=== PATIENT | male | born 1990 | race Two or more races ===

== ENCOUNTER 2022-04-26 15:49 | Inpatient (IN) ==
[2022-04-26] MEDS ORDERED: SODIUM CHLORIDE 0.9% 1000ML 1,000 ML IV ONE (16:32)
[2022-04-26] MEDS ORDERED: MoRPHine SULFATE 4 MG/ML 1 ML CARP\\VIAL IV STA ×2 (16:32→18:54)
--- NOTE | 2022-04-26 16:50 | Emergency Department Note ---
ED Provider Note History of Present Illness Chief Complaint: Skin Problem Stated Complaint: TAILBONE FRACTURE, LIKELY ABSCESS Time Seen by Provider: 04/26/22 16:07 This is a 31-year-old male who is referred to the emergency department by a local urgent care for tailbone and right buttock pain and possible infection. He slipped and fell on ice while at work 2 weeks ago (works for a local [employer] company) and landed directly on his buttocks. He did not think much of the injury at that time and continued to work. About 3 to 4 days ago he noticed some pain and aching in his tailbone and right buttock region and this has progressed relatively quickly over the past few days. Last night he felt like he might have a fever and had chills but did not check his temperature. He took some ibuprofen and Tylenol for his symptoms yesterday and today. He went to see a local urgent care today who performed an x-ray of his coccyx and was told he had a fracture of his tailbone and he was referred to the emergency department because they were concerned he had an infection on his right buttock. Patient denies any chest pain, shortness of breath, cough, sore throat, congestion, nausea, vomiting, pain with bowel movement, drainage from the area of swelling and pain in his buttock, diarrhea, constipation, numbness tingling or weakness in his lower extremities, loss of bowel or bladder function, dysuria, testicular pain, scrotal swelling. He does not have any significant thoracic or lumbar back pain. No history of MRSA. History of asthma, otherwise healthy. No history of Crohn's or ulcerative colitis. No history of perianal or rectal abscesses. Home Medications Medication Instructions Recorded Confirmed Type loratadine 10 mg tablet 10 mg PO DAILY 07/03/18 04/26/22 History fluticasone 250 mcg-salmeterol 50 1 inh inhalation BID #60 ea 11/28/21 04/26/22 Rx mcg/dose blistr powdr for inhalation (Advair Diskus) albuterol sulfate 90 mcg/actuation 2 inh inhalation QID PRN Shortness 04/26/22 04/26/22 History aerosol inhaler (Ventolin HFA) Of Breath Or Wheezing montelukast 10 mg tablet 10 mg PO DAILY 04/26/22 04/26/22 History triamcinolone acetonide 0.1 % 1 applic topical BID PRN Skin 04/26/22 04/26/22 History topical ointment Irritation Allergies Allergy/AdvReac Type Severity Reaction Status Date / Time animal dander Allergy Intermediate CONGESTION Verified 04/26/22 17:06 house dust mite Allergy Intermediate CONGESTION Verified 04/26/22 17:06 Penicillins Allergy Unknown Unknown Verified 04/26/22 17:06 Past Med/Surg History Medical History Allergic rhinitis Asthma Cough Eustachian tube dysfunction Herpes simplex type 1 infection Jaw pain Surgical History No history of previous surgery Family History Aunt Breast cancer Grandfather (Maternal) Myocardial infarction Grandfather (Paternal) Myocardial infarction Grandmother (Maternal) Asthma Allergic rhinitis Denies family history of Ovarian cancer Prostate cancer Colorectal cancer Social History Smoking Status: Current some day smoker Tobacco Type: Cigarettes Age Started Using Tobacco: 18; Age Quit Using Tobacco: 28; Second Hand Exposure: No; Do You Dip or Chew Tobacco: No; Tobacco Cessation Education Requested by Patient: No Hx Alcohol Use: Yes Alcohol type: beer, wine and hard liquor Alcohol Intake Frequency: 4 or More x per/Week Alcohol Intake Frequency Comment: 2 drinks daily Hx Substance Use: No Preferred Language: Hebrew Communication Ability: Effective Visual Impairment: No Limitations Hearing Ability: Normal Fibre Optic Cable Splicer Required: No marital status: Single Current Living Situation: Significant Other current occupational status: employed 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 How many Children do You have: 0 Other Information That Helps Us Care for You: No Feels Safe at Home: Yes Safety Concerns: Feels Safe At This Time Childhood Exposure to Second-Hand Smoke: No Dental Care, Regularly: No Physical Activity Frequency: Daily Seatbelt Use: always Sunscreen Use: No Assistive Devices: None Physical Exam Vital Signs Vital Signs - 24 hr 04/26/22 15:50 Temperature 36.6 C Temperature Source Temporal Artery Scan Pulse Rate 81 Respiratory Rate 20 Respiratory Effort / Characteristics Non-Labored Spontaneous Respiratory Depth Normal Blood Pressure 162/100 H Blood Pressure Mean 120 Pulse Oximetry 96 Oxygen Delivery Method Room Air Sepsis Recent Fever Within 48 Hours Yes Sepsis New/Unexplained Change in Mental Status No Sepsis Action Taken by Nursing No Action Required CONSTITUTIONAL: Well developed, well nourished, appears to be uncomfortable especially when putting pressure on the right buttock, changes position carefully to avoid pressure on the right buttock EYES: conjunctivae normal, extraocular muscles intact. No scleral icterus ENMT: External ears normal. Nose with normal external appearance, no congestion. Oral mucous membranes moist. Oropharynx normal. NECK: Full active range of motion. LYMPHATIC: No cervical or inguinal adenopathy RESPIRATORY: Breathing unlabored and symmetric. Lungs clear to auscultation bilaterally. No wheeze, rales, or rhonchi. CARDIOVASCULAR: Regular rate and rhythm. No murmurs, rubs, or gallops. ABDOMEN: Normal bowel sounds. Soft, nontender, no peritonitis. No masses. GENITOURINARY: RN adult basic studies teacher present. Normal scrotum with no swelling or skin color changes. No testicular tenderness. No tenderness in the perineal region. RECTAL: There is a large area of erythema, induration, and likely fluctuance located about the majority of the right buttock extending from the right perianal region. This is extremely tender to palpation. There is no obvious pointing. Erythema does not seem to extend onto the perianal region. Rectal exam is not significantly tender, there is no induration or tenderness within the rectal wall. MUSCULOSKELETAL: Moves all extremities at all joints without pain or difficulty. Back exam: There is no thoracic, or lumbar midline tenderness. There is midline coccyx tenderness. No evidence of pilonidal cyst or abscess SKIN: [place], warm, dry. NEUROLOGIC: Awake, alert, oriented. Gaze is conjugate. Face symmetric, speech normal. Moves head and all four extremities spontaneously. Sensation and strength grossly intact. PSYCHIATRIC: Appropriate. Normal affect Course Administered Medications Fluticasone/Vilanterol (Fluticasone/Vilanterol 100/25mcg 14 Puffs/Inhaler) 1 puffs INH HS REBECCA Stop: 05/26/22 22:59 Last Admin: 04/26/22 23:54 Dose: 1 puffs Documented By: EKF Hydromorphone HCl (Hydromorphone Inj 1 Mg/Ml Syringe) 1 mg IV Q4H PRN PRN Reason: Pain (4,5,6+) Stop: 05/10/22 21:18 Last Admin: 04/27/22 02:42 Dose: 1 mg Documented By: Admin: 04/26/22 22:57 Dose: 1 mg Documented By: EKF Cefepime HCl 2,000 mg/ Syringe 20 mls @ 5 mls/min IV Q8H [facility]; Protocol Stop: 05/04/22 03:59 Last Admin: 04/27/22 13:39 Dose: 5 mls/min Documented By: Admin: 04/27/22 04:25 Dose: 5 mls/min Documented By: EKF Metronidazole (Flagyl) 500 mg in 100 mls @ 100 mls/hr IV Q8H [facility] Stop: 05/04/22 03:59 Last Infusion: 04/27/22 14:56 Dose: 0 mls/hr Documented By: Admin: 04/27/22 13:39 Dose: 100 mls/hr Documented By: Infusion: 04/27/22 05:25 Dose: 0 mls/hr Documented By: Admin: 04/27/22 04:25 Dose: 100 mls/hr Documented By: EKF Acetaminophen (Ofirmev) 1,000 mg in 100 mls @ 400 mls/hr IV Q8H PRN PRN Reason: pain (1,2,3) or fever Stop: 04/29/22 21:18 Last Infusion: 04/27/22 06:35 Dose: 0 mls/hr Documented By: Admin: 04/27/22 06:16 Dose: 400 mls/hr Documented By: EKF Montelukast Sodium (Montelukast Sodium 10 Mg Tablet) 10 mg PO HS [facility] Stop: 05/26/22 23:49 Last Admin: 04/27/22 00:28 Dose: 10 mg Documented By: EKF Discontinued Medications Sodium Chloride (Nss 1000ml) 1,000 mls @ 999 mls/hr IV .Q1H1M ONE Stop: 04/26/22 17:32 Last Infusion: 04/26/22 18:08 Dose: 0 mls/hr Documented By: Admin: 04/26/22 16:42 Dose: 999 mls/hr Documented By: RICO Vancomycin HCl 1,750 mg/ (Sodium Chloride) 535 mls @ 200 mls/hr IV NOW ONE Stop: 04/26/22 21:18 Last Admin: 04/26/22 21:05 Dose: 200 mls/hr Documented By: MED Cefepime HCl (Maxipime) 2,000 mg in 20 mls @ 5 mls/min IV NOW STA; Protocol Stop: 04/26/22 18:41 Last Admin: 04/26/22 18:55 Dose: 5 mls/min Documented By: MED Metronidazole (Flagyl) 500 mg in 100 mls @ 100 mls/hr IV NOW STA Stop: 04/26/22 19:37 Last Infusion: 04/26/22 21:06 Dose: 0 mls/hr Documented By: preschool head teacher: 04/26/22 20:06 Dose: 100 mls/hr Documented By: MED Vancomycin HCl 1,250 mg/ (Sodium Chloride) 275 mls @ 200 mls/hr IV Q12H [facility]; Protocol Stop: 05/04/22 03:59 Last Infusion: 04/27/22 06:14 Dose: 0 mls/hr Documented By: Admin: 04/27/22 04:24 Dose: 200 mls/hr Documented By: EKF Ioversol (Optiray 350 100ml) 86 ml IV ONCE ONE Stop: 04/26/22 17:49 Last Admin: 04/26/22 17:49 Dose: 86 ml Documented By: P Morphine Sulfate (Morphine Sulfate 4 Mg/Ml 1 Ml Carp\Vial) 4 mg IV NOW STA Stop: 04/26/22 16:33 Last Admin: 04/26/22 16:43 Dose: 4 mg Documented By: [facility] Morphine Sulfate (Morphine Sulfate 4 Mg/Ml 1 Ml Carp\Vial) 4 mg IV NOW STA Stop: 04/26/22 18:55 Last Admin: 04/26/22 19:07 Dose: 4 mg Documented By: MED Medical Decision Making Differential Diagnosis Coccyx fracture, perianal abscess, perirectal abscess, perianal cellulitis, Debbi's gangrene, Crohn's, ulcerative colitis, MRSA, among other pathology Medical Records Attestation: I reviewed the patient's medical records. (Reviewed [facility] notes) Laboratory Data 04/26/22 16:46 04/26/22 16:46 Lab Results 04/26/22 04/26/22 04/26/22 Range/Units 14:10 16:46 16:46 WBC 14.57 H (4.8-10.8) K/ul RBC 4.93 (4.70-6.10) M/uL Hgb 16.0 (14.0-18.0) g/dl Hct 45.2 (42.0-52.0) % MCV 91.7 (80.0-100.0) fL MCH 32.5 (25.0-34.0) pg MCHC 35.4 (32.0-36.0) g/dL RDW Std Deviation 37.1 (36.4-46.3) fL RDW Coeff of Magdalene 11.0 L (11.5-14.5) % Plt Count 205 (130-400) K/uL MPV 9.6 (9.4-12.4) fL Immature Gran % (Auto) 0.5 % Neut % (Auto) 76.7 % Lymph % (Auto) 12.4 % Banks % (Auto) 9.5 % Eos % (Auto) 0.7 % Baso % (Auto) 0.2 % Neut # (Auto) 11.17 H (1.40-6.50) K/uL Lymph # (Auto) 1.80 (1.2-3.4) K/uL Banks # (Auto) 1.39 H (0.11-0.59) K/uL Eos # (Auto) 0.10 (0-0.50) K/uL Baso # (Auto) 0.03 (0-0.2) K/uL Immature Gran # (Auto) 0.08 (0.01-0.20) K/uL Sodium 136 (136-145) mmol/L Potassium 4.1 (3.5-5.1) mmol/L Chloride 103 (98-107) mmol/L Carbon Dioxide 26 (21-32) mmol/L Anion Gap 7 (3-11) BUN 12 (6-23) mg/dl Creatinine 0.98 (0.6-1.4) mg/dl Est Cr Clr Drug Dosing 124.6 ml/min Est GFR ( Amer) 119.4 ml/min Est GFR (Non-Af Amer) 103.0 ml/min BUN/Creatinine Ratio 12.2 (10-20) Glucose 99 (70-99(Fasting)) mg/dl Lactate (0.4-2.0) mmol/L Calcium 9.1 (8.5-10.1) mg/dl Total Bilirubin 0.7 (0.2-1.0) mg/dl AST 22 (13-39) U/L ALT 39 (7-52) U/L Alkaline Phosphatase 41 (34-104) U/L Total Protein 7.8 (6.0-8.3) gm/dl Albumin 4.7 (3.4-5.0) gm/dl Globulin 3.1 (2.5-4.0) gm/dl Albumin/Globulin Ratio 1.5 (0.9-2) SARS-CoV-2, RNA, NAAT NEGATIVE (NEGATIVE) 04/26/22 Range/Units 16:46 WBC (4.8-10.8) K/ul RBC (4.70-6.10) M/uL Hgb (14.0-18.0) g/dl Hct (42.0-52.0) % MCV (80.0-100.0) fL MCH (25.0-34.0) pg MCHC (32.0-36.0) g/dL RDW Std Deviation (36.4-46.3) fL RDW Coeff of Magdalene (11.5-14.5) % Plt Count (130-400) K/uL MPV (9.4-12.4) fL Immature Gran % (Auto) % Neut % (Auto) % Lymph % (Auto) % Banks % (Auto) % Eos % (Auto) % Baso % (Auto) % Neut # (Auto) (1.40-6.50) K/uL Lymph # (Auto) (1.2-3.4) K/uL Banks # (Auto) (0.11-0.59) K/uL Eos # (Auto) (0-0.50) K/uL Baso # (Auto) (0-0.2) K/uL Immature Gran # (Auto) (0.01-0.20) K/uL Sodium (136-145) mmol/L Potassium (3.5-5.1) mmol/L Chloride (98-107) mmol/L Carbon Dioxide (21-32) mmol/L Anion Gap (3-11) BUN (6-23) mg/dl Creatinine (0.6-1.4) mg/dl Est Cr Clr Drug Dosing ml/min Est GFR ( Amer) ml/min Est GFR (Non-Af Amer) ml/min BUN/Creatinine Ratio (10-20) Glucose (70-99(Fasting)) mg/dl Lactate 1.4 (0.4-2.0) mmol/L Calcium (8.5-10.1) mg/dl Total Bilirubin (0.2-1.0) mg/dl AST (13-39) U/L ALT (7-52) U/L Alkaline Phosphatase (34-104) U/L Total Protein (6.0-8.3) gm/dl Albumin (3.4-5.0) gm/dl Globulin (2.5-4.0) gm/dl Albumin/Globulin Ratio (0.9-2) SARS-CoV-2, RNA, NAAT (NEGATIVE) Imaging Data Radiologist's Impression: Abdomen/Pelvis CT 04/26/22 16:[address] WITH IV CONTRAST CT DOSE: 482.75 mGy.cm HISTORY: Acute pain of the right buttock with possible abscess large cellulit is/abscess R buttock, coccyx fx TECHNIQUE: Multiaxial CT images of the abdomen and pelvis were performed following the IV administration of 86 cc of Optiray, A dose lowering technique was utilized adhering to the principles of ALARA. COMPARISON STUDY: None. FINDINGS: The lung bases are clear. Hepatomegaly with hepatic steatosis. The spleen, gallbladder, pancreas, kidneys, and adrenal glands are within normal limits. No bowel wall thickening or obstruction. Urinary bladder wall thickening with partial distention. Noninflamed appendix with distal subcentimeter appendicolith. Unremarkable osseous structures. Posterior perianal fistula originates from the 7:00 position with cellulitis extending into the adjacent right medial gluteal fold. Ill-defined 3.0 cm hypodensity of the right gluteal tissues on image 457. Moderate skin thickening. No supralevator extension. IMPRESSION: 1. 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 No supralevator extension. 2. No bowel obstruction or bowel wall thickening. 3. Noninflamed appendix with subcentimeter appendicolith. 4. Hepatomegaly with hepatic steatosis. ACT 112: Negative or not required by law. The above report was generated using voice recognition software. It may contain grammatical, syntax or spelling errors. Electronically signed by: Chester Chapa M.D. 04/26/2022 6:08 PM MDM Narrative 31-year-old male presents with 3 to 4 days of progressive right buttock pain, erythema, and swelling, was referred to the emergency department by local urgent care for possible abscess/infection. This is also in context of the patient slipping and falling 2 weeks ago at work for a local [employer] company and landing directly on his buttock. He was told he has a tailbone fracture from urgent care today. On his exam, he does appear to be somewhat uncomfortable especially when any pressure is put on the right buttock. There is tenderness in the coccyx region. He appears to have an extensive cellulitis, possibly abscess about the right perianal region. His rectal exam is relatively nontender and I am not appreciating any evidence of obvious perirectal abscess. IV was established, labs were obtained including lactate. IV fluids were administered. Morphine for pain control. Labs show a leukocytosis of 14.57. Lactate is normal. No additional abn ormalities were identified. Due to the extent of the infection on his buttock with the possible coccyx fracture, CT of the abdomen and pelvis was obtained demonstrating cellulitis, posterior perianal fistula with likely intersphincteric involvement, and a developing 3 cm phlegmon/abscess. Patient required an additional dose of morphine for pain control I discussed the case with Dr. Pang (general surgery on-call) who made specific recommendations and requested the patient be placed on antibiotics and admitted for IV antibiotics with general surgery consult to follow. He is unsure if this will require incision and drainage in the OR. I discussed antibiotic options with clinical pharmacist Felix given his mild allergy to penicillin. We decided to treat the patient with vancomycin, cefe pime, and Flagyl. First dose administered in the emergency department. Case discussed with Dr. Nye (hospitalist on-call) who will admit the patient. Impression Perianal cellulitis, Phlegmon Discharge Plan Visit Data Chief Complaint: Skin Problem Stated Complaint: TAILBONE FRACTURE, LIKELY ABSCESS ED Provider: Roger Zhang ED Midlevel Provider: Baljit Ba Discharge Problem: Perianal cellulitis, Phlegmon Patient Disposition: Admitted As Inpatient Discharge Instructions Interventions: ED Discharge Assessment Last Done: 04/26/22 22:19
[2022-04-26 17:15] LABS: Hematocrit (blood only) 45.2 % (42.0-52.0); Mean Corpuscular Hemoglobin 32.5 pg (25.0-34.0); Mean Corpuscular Hgb Conc 35.4 g/dL (32.0-36.0); Mean Corpuscular Volume 91.7 fL (80.0-100.0); Mean Platelet Volume 9.6 fL (9.4-12.4); Platelet Count 205 K/uL (130-400); RDW Standard Deviation 37.1 fL (36.4-46.3); Red Blood Count 4.93 M/uL (4.70-6.10); White Blood Count 14.57 K/ul (4.8-10.8)
[2022-04-26 17:16] LABS: Basophils # (auto) 0.03 K/uL (0-0.2); Basophils % (auto) 0.2 %; Eosinophils % (auto) 0.7 %; Immature Granulocytes # (auto) 0.08 K/uL (0.01-0.20); Immature Granulocytes % (auto) 0.5 %; Lymphocytes % (auto) 12.4 %; Monocytes # (auto) 1.39 K/uL (0.11-0.59); Monocytes % (auto) 9.5 %; Neutrophils # (auto) 11.17 K/uL (1.40-6.50); Neutrophils % (auto) 76.7 %
[2022-04-26 17:28] LABS: Albumin Globulin Ratio 1.5 (0.9-2); Albumin Level 4.7 gm/dl (3.4-5.0); BUN Creatinine Ratio 12.2 (10-20); Bilirubin,Total 0.7 mg/dl (0.2-1.0); Calcium 9.1 mg/dl (8.5-10.1); Creatinine Clr Calc Pharmacy 124.6 ml/min; Est GFR (African American) 119.4 ml/min; Globulin 3.1 gm/dl (2.5-4.0); Potassium 4.1 mmol/L (3.5-5.1); Total Protein 7.8 gm/dl (6.0-8.3)
[2022-04-26] MEDS ORDERED: OPTIRAY 350 100ml IV ONE (17:48)
--- NOTE | 2022-04-26 18:11 | CT Scan Report ---
ABDOMEN AND PELVIS CT WITH IV CONTRAST CT DOSE: 482.75 mGy.cm HISTORY: Acute pain of the right buttock with possible abscess large cellulitis/abscess R buttock, c occyx fx TECHNIQUE: Multiaxial CT images of the abdomen and pelvis were performed following the IV administrat ion of 86 cc of Optiray, A dose lowering technique was utilized adhering to the principles of ALARA. COMPARISON STUDY: None. FINDINGS: The lung bases are clear. Hepatomegaly with hepatic steatosis. The spleen, gallbladder, cano creas, kidneys, and adrenal glands are within normal limits. No bowel wall thickening or obstruction. Urinary bladder wall thickening with partial distention. Noninflamed appendix with distal subcentime ter appendicolith. Unremarkable osseous structures. Posterior perianal fistula originates from the 7: 00 position with cellulitis extending into the adjacent right medial gluteal fold. Ill-defined 3.0 cm hypodensity of the right gluteal tissues on image 457. Moderate skin thickening. No supralevator ext ension. IMPRESSION: 1. 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 No supralevator extension. 2. No bowel obstruction or bowel wall thickening. 3. Noninflamed appendix with subcentimeter appendicolith. 4. Hepatomegaly with hepatic steatosis. ACT 112: Negative or not required by law. The above report was generated using voice recognition software. It may contain grammatical, syntax o r spelling errors. Electronically signed by: Chester Chapa M.D. 04/26/2022 6:08 PM
[2022-04-26] MEDS ORDERED: metroNIDAZOLE 500 MG/100 ML BAG IV STA (18:38)
[2022-04-26] MEDS ORDERED: CEFEPIME 2,000 MG/20 ML VIAL IV STA (18:38)
[2022-04-26] MEDS ORDERED: VANCOMYCIN CONSULT ACTIVE PRN (18:38)
[2022-04-26] MEDS ORDERED: VANCOMYCIN HCL 1,750 MG in SODIUM CHLORIDE 0.9% 500 ML IV ONE (18:38)
--- NOTE | 2022-04-26 20:49 | History & Physical Report ---
Patient seen and examined. I agree with the history and physical and the plan as outlined in the PA note. 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 No supralevator extension." -ED spoke with General Surgery who recommended medicine admission with IV antibiotics for now, no urgent plans for the OR -General surgery consulted, they will follow -S/P one dose of Vancomycin for MRSA coverage, and Cefepime with Flagyl for aerobic and anaerobic coverage, will continue this regimen for now -Ordered blood cultures on admission, unfortunately the first doses of abx were given prior to admission, continue to follow -Pain control with IV tylenol prn pain (1,2,3 or fever) and 1 mg IV dilaudid q4h prn pain (4,5,6+) -BL SCD's for DVT PPX -AM CBC, CMP, Mag, PT/INR (2) Mild persistent asthma: Plan: -Stable on RA, lungs are CTA -Continue advair and albuterol -Incentive spirometry ordered Plan The patient was discussed with Dr. Saez at the time of the admission History of Present Illness Chief Complaint: Tailbone pain, concern for fracture and/or abscess Primary Care Provider: DO Grzegorz Burk is a 31 year old male with a PMH significant for Allergic rhinitis, Asthma, and Herpes simplex type 1 infection who presented to the [facility] ED from an Urgent Care clinic today (04/26/22) due to concerns for tailbone fracture and possible abscess of the buttocks. In the ED the patient was found to be afebrile, hypertensive at 162/100, and stable on RA. Labs were remarkable for a leukocytosis of 14 with left shift of 11, stable Hgb and platelets, stable cr, electrolytes, and LFT's, and Covid negative. CT of the abd/pelvis with IV contrast was read as" 1. 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 No supralevator extension. 2. No bowel obstruction or bowel wall thickening. 3. Noninflamed appendix with subcentimeter appendicolith. 4. Hepatomegaly with hepatic steatosis.". The patient was initially given Cefepime, flagyl, and Vancomycin along with 1L NSS and 8 mg total IV morphine. The ED staff spoke with General Surgery who recommended medicine admission with IV antibiotics at this time. At the time of the exam the patient was lying in bed in no acute distress. 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 He was carrying a bad, slipped on ice, and landed on his buttocks holding the salt bag. He rested and and the pain initially improved. Over last week he started to develop swelling and increased pain of the right buttocks. He used tylenol and ibuprofen without relief. He went to an urgent care clinic today for evaluation where they obtain an xray of his pelvis. They told him he may have fractured his tailbone and they were concerned for possible abscess and sent him to the ED. His pain is currently an 8/10 as the morphine he received in the ED has worn off. He had chills and sweats last night but did not take his temperature. He denies chest pain, SOB, abd pain, nausea, vomiting, changes in bowel habits, melena, bloody stool, dysuria, hematuria. Please refer to Dr. Saez's attestation for any changes to the treatment plan. Allergies Allergy/AdvReac Type Severity Reaction Status Date / Time animal dander Allergy Intermediate CONGESTION Verified 04/26/22 17:06 house dust mite Allergy Intermediate CONGESTION Verified 04/26/22 17:06 Penicillins Allergy Unknown Unknown Verified 04/26/22 17:06 Home Medications Medication Instructions Recorded Confirmed Type loratadine 10 mg tablet 10 mg PO DAILY 07/03/18 04/26/22 History fluticasone 250 mcg-salmeterol 50 1 inh inhalation BID #60 ea 11/28/21 04/26/22 Rx mcg/dose blistr powdr for inhalation (Advair Diskus) albuterol sulfate 90 mcg/actuation 2 inh inhalation QID PRN Shortness 04/26/22 04/26/22 History aerosol inhaler (Ventolin HFA) Of Breath Or Wheezing montelukast 10 mg tablet 10 mg PO DAILY 04/26/22 04/26/22 History triamcinolone acetonide 0.1 % 1 applic topical BID PRN Skin 04/26/22 04/26/22 History topical ointment Irritation Past Med/Surg History Medical History Allergic rhinitis Asthma Cough Eustachian tube dysfunction Herpes simplex type 1 infection Jaw pain Surgical History No history of previous surgery Family History Aunt Breast cancer Grandfather (Maternal) Myocardial infarction Grandfather (Paternal) Myocardial infarction Grandmother (Maternal) Asthma Allergic rhinitis Denies family history of Ovarian cancer Prostate cancer Colorectal cancer Social History Smoking Status: Current some day smoker Tobacco Type: Cigarettes Age Started Using Tobacco: 18; Age Quit Using Tobacco: 28; Second Hand Exposure: No; Hx Alcohol Use: Yes Alcohol type: beer, wine and hard liquor Alcohol Intake Frequency: 4 or More x per/Week Alcohol Intake Frequency Comment: 2 drinks daily Hx Substance Use: No Preferred Language: [place] Island[place] Communication Ability: Effective Visual Impairment: No Limitations Hearing Ability: Normal marital status: Single Current Living Situation: Significant Other current occupational status: employed 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 Physical Exam Physical Exam: Physical Exam: General: In no acute distress, stated age, well-nourished, non-toxic appearing HEENT: Normocephalic, atraumatic, no scleral icterus, pupils around round, symmetrical, and reactive to light, moist mucus membranes, trachea midline, no thyromegaly Chest/Pulm: No respiratory distress, symmetrical chest expansion, clear breath sounds throughout Cardiac: RRR, no murmurs noted Abdomen: Negative for ascites and bruising, normoactive bowel sounds, soft, non-tender to palpation throughout Musculoskeletal: Symmetrical and without signs of acute trauma, upper and lower extremities with full ROM, no atrophy, spasticity, or flaccidity Extremities: Radial, dorsalis pedis, and posterior tibial pulses are intact and symmetrical, no edema noted in the BL LE's Skin: Patient with swelling and erythema of the right buttocks without signs of drainage, the area of erythema is firm and very tender to palpation Neuro: Alert and oriented to person, place, month, year, and president, no focal defects, no tremors noted Psych: No acute distress, calm and cooperative during the exam Results & Data Results & Data ([facility]) Vital Signs (Past 12 Hours) Vital Signs Temp Pulse Resp BP Pulse Ox O2 Del Method 04/26/22 15:50 36.6 C 81 20 162/100 H 96 Room Air Laboratory Results Abnormal lab results 04/26/22 Range/Units 16:46 WBC 14.57 H (4.8-10.8) K/ul RDW Coeff of Magdalene 11.0 L (11.5-14.5) % Neut # (Auto) 11.17 H (1.40-6.50) K/uL [place] # (Auto) 1.39 H (0.11-0.59) K/uL Diagnostic Findings Abdomen/Pelvis CT 04/26/22 16:[address] WITH IV CONTRAST CT DOSE: 482.75 mGy.cm HISTORY: Acute pain of the right buttock with possible abscess large cellulitis/abscess R buttock, coccyx fx TECHNIQUE: Multiaxial CT images of the abdomen and pelvis were performed following the IV administration of 86 cc of Optiray, A dose lowering technique was utilized adhering to the principles of ALARA. COMPARISON STUDY: None. FINDINGS: The lung bases are clear. Hepatomegaly with hepatic steatosis. The spleen, gallbladder, pancreas, kidneys, and adrenal glands are within normal limits. No bowel wall thickening or obstruction. Urinary bladder wall thickening with partial distention. Noninflamed appendix with distal subcentimeter appendicolith. Unremarkable osseous structures. Posterior perianal fistula originates from the 7:00 position with cellulitis extending into the adjacent right medial gluteal fold. Ill-defined 3.0 cm hypodensity of the right gluteal tissues on image 457. Moderate skin thickening. No supralevator extension. IMPRESSION: 1. 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 No supralevator extension. 2. No bowel obstruction or bowel wall thickening. 3. Noninflamed appendix with subcentimeter appendicolith. 4. Hepatomegaly with hepatic steatosis. ACT 112: Negative or not required by law. The above report was generated using voice recognition software. It may contain grammatical, syntax or spelling errors. Electronically signed by: Chester Chapa M.D. 04/26/2022 6:08 PM Code Status & VTE Plan Code Status Full code VTE Prophylaxis Plan VTE Prophylaxis will be ordered: Yes PG Care Time/CCT Total # of Minutes Spent Total Time Spent with Patient: Total time spent is greater than 50% in coordination of care (as documented) at patient's floor/unit and/or counseling patient: [place] [address] INT INP/OBS CARE 2/55MIN Patient Type New History Comprehensive Exam Comprehensive Medical Decision Making Moderate Complexity Diagnoses Perianal abscess K61.0 Mild persistent asthma J45.30
[2022-04-26] MEDS ORDERED: ALBUTEROL HFA 8 GM INHALER INH PRN (22:53)
[2022-04-26] MEDS: HYDROmorphone INJ 1 MG/ML SYRINGE IV PRN (22:57)
[2022-04-26] MEDS: FLUTICASONE/VILANTEROL 100/25MCG 14 PUFFS/INHALER INH SCH (23:54)
[2022-04-27] MEDS: MONTELUKAST SODIUM 10 MG TABLET PO SCH ×2 (00:28→20:03)
[2022-04-27] MEDS: HYDROmorphone INJ 1 MG/ML SYRINGE IV PRN (02:42)
[2022-04-27] MEDS ORDERED: VANCOMYCIN HCL 1,250 MG in SODIUM CHLORIDE 0.9% 250 ML IV SCH (04:00)
[2022-04-27] MEDS: CEFEPIME 2,000 MG in SYRINGE 0 ML IV SCH ×3 (04:25→19:35)
[2022-04-27] MEDS: metroNIDAZOLE 500 MG/100 ML BAG IV SCH ×3 (04:25→19:35)
[2022-04-27] MEDS: ACETAMINOPHEN 1,000 MG/100 ML VIAL IV PRN ×2 (06:16→19:35)
[2022-04-27 07:48] LABS: Hematocrit (blood only) 41.3 % (42.0-52.0); Hemoglobin 14.5 g/dl (14.0-18.0); Mean Corpuscular Hemoglobin 32.2 pg (25.0-34.0); Mean Corpuscular Hgb Conc 35.1 g/dL (32.0-36.0); Mean Corpuscular Volume 91.8 fL (80.0-100.0); Mean Platelet Volume 9.5 fL (9.4-12.4); Platelet Count 195 K/uL (130-400); RDW Standard Deviation 37.2 fL (36.4-46.3); White Blood Count 15.58 K/ul (4.8-10.8)
[2022-04-27 08:01] LABS: Albumin Globulin Ratio 1.4 (0.9-2); Albumin Level 3.9 gm/dl (3.4-5.0); BUN Creatinine Ratio 12.4 (10-20); Bilirubin,Total 0.7 mg/dl (0.2-1.0); Calcium 8.6 mg/dl (8.5-10.1); Creatinine Clr Calc Pharmacy 137.2 ml/min; Est GFR (Non-African American) 114.7 ml/min; Globulin 2.8 gm/dl (2.5-4.0); Potassium 3.8 mmol/L (3.5-5.1); Total Protein 6.7 gm/dl (6.0-8.3)
[2022-04-27 08:15] LABS: Prothrombin Time 10.8 Seconds (9.0-12.0)
--- NOTE | 2022-04-27 09:28 | Surgery Consultation ---
Date of Consultation April 27, 2022 Assessment & Plan (1) Perianal cellulitis: (2) Phlegmon: (3) Perianal abscess: Plan 31 year-old male who is about 2 weeks s/p fall onto his buttocks presented to ED wtih 3-4 day history of perirectal pain and swelling. CT scan showing possible perianal fistula with 3.0 cm phlegmon vs developing abscess. Leukocytosis of 15k this am. Spontaneous drainage of abscess last night per patient. Plan: Given exam and CT findings discussed with patient that the phlegmon likely turning into a drainable abscess. Given the cellulitis would recommend incision and drainage to completely removed infection. Will plan to add him to OR today for I&D. NPO now Continue IV antibiotics Continue pain management Dr. Looney has seen and examined pt, agrees with above plan. Discussed need for I&D with patient and obtained informed consent. I reviewed pt's H/P, albs and CT scan with pt, I recommend to do I/D perirectal abscess, D/W benefits, risks and alternatives of the surgery, the risks - infection, bleeding, recurrence, fistula, may need more surgery, scar, pain, pt understood, he agreed with surgery, he signed informed consent, I answered all questions, History of Present Illness Reason for Consultation: Perirectal abscess Requesting Physician: Reed Galloway MD Attending Physician: Reed Galloway MD History of Present Illness Grzegorz is a 31 year-old male who presented to ED last night with rectal/buttock pain and concern for abscess. Had a fall on his buttocks about 2 weeks ago and had some bruising but no swelling. Went to urgent care due to pain for 3-4 days and there was concern for abscess and possible fracture of his coccyx. He has never had this before. No recent fevers or chills. CT scan showing right gluteal cellulitis with possible perianal fistula and 3.0 cm phlegmon/developing abscess. When evaluated this morning he states he is feeling better and pain is a little better as the abscess drained on its own last night. Denies fever or chills. Ate breakfast this am around 8 am. Allergies Allergy/AdvReac Type Severity Reaction Status Date / Time animal dander Allergy Intermediate CONGESTION Verified 04/26/22 17:06 house dust mite Allergy Intermediate CONGESTION Verified 04/26/22 17:06 Penicillins Allergy Unknown Unknown Verified 04/26/22 17:06 Home Medications Medication Instructions Recorded Confirmed Type loratadine 10 mg tablet 10 mg PO DAILY 07/03/18 04/26/22 History fluticasone 250 mcg-salmeterol 50 1 inh inhalation BID #60 ea 11/28/21 04/26/22 Rx mcg/dose blistr powdr for inhalation (Advair Diskus) albuterol sulfate 90 mcg/actuation 2 inh inhalation QID PRN Shortness 04/26/22 04/26/22 History aerosol inhaler (Ventolin HFA) Of Breath Or Wheezing montelukast 10 mg tablet 10 mg PO DAILY 04/26/22 04/26/22 History triamcinolone acetonide 0.1 % 1 applic topical BID PRN Skin 04/26/22 04/26/22 History topical ointment Irritation Patient History Medical History Allergic rhinitis Asthma Cough Eustachian tube dysfunction Herpes simplex type 1 infection Jaw pain Surgical History No history of previous surgery Family History Aunt Breast cancer Grandfather (Maternal) Myocardial infarction Grandfather (Paternal) Myocardial infarction Grandmother (Maternal) Asthma Allergic rhinitis Denies family history of Ovarian cancer Prostate cancer Colorectal cancer Social History Smoking Status: Current some day smoker Tobacco Type: Cigarettes Age Started Using Tobacco: 18; Age Quit Using Tobacco: 28; Second Hand Exposure: No; Do You Dip or Chew Tobacco: No; Tobacco Cessation Education Requested by Patient: No Hx Alcohol Use: Yes Alcohol type: beer, wine and hard liquor Alcohol Intake Frequency: 4 or More x per/Week Alcohol Intake Frequency Comment: 2 drinks daily Hx Substance Use: No Preferred Language: Slovak Communication Ability: Effective Visual Impairment: No Limitations Hearing Ability: Normal Blueberry Grower Required: No marital status: Single Current Living Situation: Significant Other current occupational status: employed 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 How many Children do You have: 0 Other Information That Helps Us Care for You: No Feels Safe at Home: Yes Safety Concerns: Feels Safe At This Time Childhood Exposure to Second-Hand Smoke: No Dental Care, Regularly: No Physical Activity Frequency: Daily Seatbelt Use: always Sunscreen Use: No Assistive Devices: None Physical Exam Constitutional: WD/WN, vitals as above cooperative; no acute distress, not ill appearing, + uncomfortable, not in distress, not diaphoretic and not lethargic looks uncomfortable secondary to pain Neck: normal visual inspection and trachea midline Respiratory: normal respiratory effort; no respiratory distress Gastrointestinal (Abdomen): External rectal exam: There is significant induration of the right buttocks, very tender to palpation. Flutuance is noted, no drainage on exam. Did not perform digital rectal exam given swelling and tenderness. Erythema of right buttocks present. Skin: no rashes, warm and dry Psychiatric: Orientation: alert and oriented x 3 Results & Data ([facility]) Vital Signs (Past 12 Hours) Vital Signs Temp Pulse Pulse Resp BP Pulse Ox O2 Del Method 04/27/22 07:30 36.6 C 83 16 145/88 H 98 Room Air 04/27/22 04:23 36.4 C L 76 16 149/92 H 96 Room Air 04/26/22 22:53 37.1 C 18 146/76 H 98 Room Air 04/26/22 22:19 88 96 Room Air Laboratory Results 04/27/22 04/27/22 04/27/22 Range/Units 07:16 07:16 07:16 WBC 15.58 H (4.8-10.8) K/ul RBC 4.50 L (4.70-6.10) M/uL Hgb 14.5 (14.0-18.0) g/dl Hct 41.3 L (42.0-52.0) % MCV 91.8 (80.0-100.0) fL MCH 32.2 (25.0-34.0) pg MCHC 35.1 (32.0-36.0) g/dL RDW Std Deviation 37.2 (36.4-46.3) fL RDW Coeff of Magdalene 11.0 L (11.5-14.5) % Plt Count 195 (130-400) K/uL MPV 9.5 (9.4-12.4) fL Immature Gran % (Auto) % Neut % (Auto) % Lymph % (Auto) % [place] % (Auto) % Eos % (Auto) % Baso % (Auto) % Neut # (Auto) (1.40-6.50) K/uL Lymph # (Auto) (1.2-3.4) K/uL [place] # (Auto) (0.11-0.59) K/uL Eos # (Auto) (0-0.50) K/uL Baso # (Auto) (0-0.2) K/uL Immature Gran # (Auto) (0.01-0.20) K/uL PT 10.8 (9.0-12.0) Seconds INR 1.0 (0.9-1.1) Sodium 136 (136-145) mmol/L Potassium 3.8 (3.5-5.1) mmol/L Chloride 103 (98-107) mmol/L Carbon Dioxide 28 (21-32) mmol/L Anion Gap 5 (3-11) BUN 11 (6-23) mg/dl Creatinine 0.89 (0.6-1.4) mg/dl Est Cr Clr Drug Dosing 137.2 ml/min Est GFR ( Amer) 133.0 ml/min Est GFR (Non-Af Amer) 114.7 ml/min BUN/Creatinine Ratio 12.4 (10-20) Glucose 103 H (70-99(Fasting)) mg/dl Lactate (0.4-2.0) mmol/L Calcium 8.6 (8.5-10.1) mg/dl Total Bilirubin 0.7 (0.2-1.0) mg/dl AST 13 (13-39) U/L ALT 28 (7-52) U/L Alkaline Phosphatase 35 (34-104) U/L Total Protein 6.7 (6.0-8.3) gm/dl Albumin 3.9 (3.4-5.0) gm/dl Globulin 2.8 (2.5-4.0) gm/dl Albumin/Globulin Ratio 1.4 (0.9-2) SARS-CoV-2, RNA, NAAT (NEGATIVE) 04/26/22 04/26/22 04/26/22 Range/Units 16:46 16:46 16:46 WBC 14.57 H (4.8-10.8) K/ul RBC 4.93 (4.70-6.10) M/uL Hgb 16.0 (14.0-18.0) g/dl Hct 45.2 (42.0-52.0) % MCV 91.7 (80.0-100.0) fL MCH 32.5 (25.0-34.0) pg MCHC 35.4 (32.0-36.0) g/dL RDW Std Deviation 37.1 (36.4-46.3) fL RDW Coeff of Magdalene 11.0 L (11.5-14.5) % Plt Count 205 (130-400) K/uL MPV 9.6 (9.4-12.4) fL Immature Gran % (Auto) 0.5 % Neut % (Auto) 76.7 % Lymph % (Auto) 12.4 % [place] % (Auto) 9.5 % Eos % (Auto) 0.7 % Baso % (Auto) 0.2 % Neut # (Auto) 11.17 H (1.40-6.50) K/uL Lymph # (Auto) 1.80 (1.2-3.4) K/uL [place] # (Auto) 1.39 H (0.11-0.59) K/uL Eos # (Auto) 0.10 (0-0.50) K/uL Baso # (Auto) 0.03 (0-0.2) K/uL Immature Gran # (Auto) 0.08 (0.01-0.20) K/uL PT (9.0-12.0) Seconds INR (0.9-1.1) Sodium 136 (136-145) mmol/L Potassium 4.1 (3.5-5.1) mmol/L Chloride 103 (98-107) mmol/L Carbon Dioxide 26 (21-32) mmol/L Anion Gap 7 (3-11) BUN 12 (6-23) mg/dl Creatinine 0.98 (0.6-1.4) mg/dl Est Cr Clr Drug Dosing 124.6 ml/min Est GFR ( Amer) 119.4 ml/min Est GFR (Non-Af Amer) 103.0 ml/min BUN/Creatinine Ratio 12.2 (10-20) Glucose 99 (70-99(Fasting)) mg/dl Lactate 1.4 (0.4-2.0) mmol/L Calcium 9.1 (8.5-10.1) mg/dl Total Bilirubin 0.7 (0.2-1.0) mg/dl AST 22 (13-39) U/L ALT 39 (7-52) U/L Alkaline Phosphatase 41 (34-104) U/L Total Protein 7.8 (6.0-8.3) gm/dl Albumin 4.7 (3.4-5.0) gm/dl Globulin 3.1 (2.5-4.0) gm/dl Albumin/Globulin Ratio 1.5 (0.9-2) SARS-CoV-2, RNA, NAAT (NEGATIVE) 04/26/22 Range/Units 14:10 WBC (4.8-10.8) K/ul RBC (4.70-6.10) M/uL Hgb (14.0-18.0) g/dl Hct (42.0-52.0) % MCV (80.0-100.0) fL MCH (25.0-34.0) pg MCHC (32.0-36.0) g/dL RDW Std Deviation (36.4-46.3) fL RDW Coeff of Magdalene (11.5-14.5) % Plt Count (130-400) K/uL MPV (9.4-12.4) fL Immature Gran % (Auto) % Neut % (Auto) % Lymph % (Auto) % [place] % (Auto) % Eos % (Auto) % Baso % (Auto) % Neut # (Auto) (1.40-6.50) K/uL Lymph # (Auto) (1.2-3.4) K/uL [place] # (Auto) (0.11-0.59) K/uL Eos # (Auto) (0-0.50) K/uL Baso # (Auto) (0-0.2) K/uL Immature Gran # (Auto) (0.01-0.20) K/uL PT (9.0-12.0) Seconds INR (0.9-1.1) Sodium (136-145) mmol/L Potassium (3.5-5.1) mmol/L Chloride (98-107) mmol/L Carbon Dioxide (21-32) mmol/L Anion Gap (3-11) BUN (6-23) mg/dl Creatinine (0.6-1.4) mg/dl Est Cr Clr Drug Dosing ml/min Est GFR ( Amer) ml/min Est GFR (Non-Af Amer) ml/min BUN/Creatinine Ratio (10-20) Glucose (70-99(Fasting)) mg/dl Lactate (0.4-2.0) mmol/L Calcium (8.5-10.1) mg/dl Total Bilirubin (0.2-1.0) mg/dl AST (13-39) U/L ALT (7-52) U/L Alkaline Phosphatase (34-104) U/L Total Protein (6.0-8.3) gm/dl Albumin (3.4-5.0) gm/dl Globulin (2.5-4.0) gm/dl Albumin/Globulin Ratio (0.9-2) SARS-CoV-2, RNA, NAAT NEGATIVE (NEGATIVE) Diagnostic Findings ABDOMEN AND PELVIS CT WITH IV CONTRAST CT DOSE: 482.75 mGy.cm HISTORY: Acute pain of the right buttock with possible abscess large cellulitis/abscess R buttock, coccyx fx TECHNIQUE: Multiaxial CT images of the abdomen and pelvis were performed following the IV administration of 86 cc of Optiray, A dose lowering technique was utilized adhering to the principles of ALARA. COMPARISON STUDY: None. FINDINGS: The lung bases are clear. Hepatomegaly with hepatic steatosis. The spleen, gallbladder, pancreas, kidneys, and adrenal glands are within normal limits. No bowel wall thickening or obstruction. Urinary bladder wall thickening with partial distention. Noninflamed appendix with distal subcentimeter appendicolith. Unremarkable osseous structures. Posterior perianal fistula originates from the 7:00 position with cellulitis extending into the adjacent right medial gluteal fold. Ill-defined 3.0 cm hypodensity of the right gluteal tissues on image 457. Moderate skin thickening. No supralevator extension. IMPRESSION: 1. 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 No supralevator extension. 2. No bowel obstruction or bowel wall thickening. 3. Noninflamed appendix with subcentimeter appendicolith. 4. Hepatomegaly with hepatic steatosis. ACT 112: Negative or not required by law. The above report was generated using voice recognition software. It may contain grammatical, syntax or spelling errors.
--- NOTE | 2022-04-27 12:49 | Anesthesiology Consultation ---
Date of Service April 27, 2022 Assessment & Plan (1) Encounter for pre-operative examination: Chart Review Chart Review: Acceptable Risk for Surgery (await being NPO) History Surgery Operation Date: 04/27/22 08:00 Proposed Procedures p Incision and Drainage Perirectal Abscess - Brit Looney MD Height/Weight Height: 6 ft 1 in Weight: 91.671 kg Allergies Allergy/AdvReac Type Severity Reaction Status Date / Time animal dander Allergy Intermediate CONGESTION Verified 04/26/22 17:06 house dust mite Allergy Intermediate CONGESTION Verified 04/26/22 17:06 Penicillins Allergy Unknown Unknown Verified 04/26/22 17:06 Medications Home Medications Medication Instructions Recorded Confirmed Last Taken loratadine 10 mg tablet 10 mg PO DAILY 07/03/18 04/26/22 04/26/22 fluticasone 250 mcg-salmeterol 50 1 inh inhalation BID #60 ea 11/28/21 04/26/22 04/26/22 08:00 mcg/dose blistr powdr for inhalation (Advair Diskus) albuterol sulfate 90 mcg/actuation 2 inh inhalation QID PRN Shortness 04/26/22 04/26/22 Unknown aerosol inhaler (Ventolin HFA) Of Breath Or Wheezing montelukast 10 mg tablet 10 mg PO DAILY 04/26/22 04/26/22 04/26/22 triamcinolone acetonide 0.1 % 1 applic topical BID PRN Skin 04/26/22 04/26/22 Unknown topical ointment Irritation Active Medications Generic Name Dose Route Start Last Admin Trade Name Freq PRN Reason Stop Dose Admin Fluticasone/Vilanterol 1 puffs 04/26/22 23:00 04/26/22 23:54 Fluticasone/Vilanterol 100/25mcg 14 Puffs/Inhaler INH 05/26/22 22:59 1 puffs HS REBECCA Administration Hydromorphone HCl 1 mg 04/26/22 21:19 04/27/22 02:42 Hydromorphone Inj 1 Mg/Ml Syringe IV 05/10/22 21:18 1 mg Q4H PRN Administration Pain (4,5,6+) Cefepime HCl 2,000 mg/ Syringe 20 mls @ 5 mls/min 04/27/22 04:00 03/09/23 04:25 IV 05/04/22 03:59 5 mls/min Q8H REBECCA Administration Protocol Metronidazole 500 mg in 100 mls @ 100 mls/hr 04/27/22 04:00 04/27/22 05:25 Flagyl IV 05/04/22 03:59 Infused Q8H REBECCA Infusion Acetaminophen 1,000 mg in 100 mls @ 400 mls/hr 04/26/22 21:19 04/27/22 06:35 Ofirmev IV 04/29/22 21:18 Infused Q8H PRN Infusion pain (1,2,3) or fever Montelukast Sodium 10 mg 04/26/22 23:50 04/27/22 00:28 Montelukast Sodium 10 Mg Tablet PO 05/26/22 23:49 10 mg HS REBECCA Administration Past Medical History Medical History Allergic rhinitis Asthma Cough Eustachian tube dysfunction Herpes simplex type 1 infection Jaw pain Past Family History Family History Aunt Breast cancer Grandfather (Maternal) Myocardial infarction Grandfather (Paternal) Myocardial infarction Grandmother (Maternal) Asthma Allergic rhinitis Denies family history of Ovarian cancer Prostate cancer Colorectal cancer Past Surgical History Surgical History No history of previous surgery Social History Smoking Status: Current some day smoker tobacco type: cigarettes Do You Dip or Chew Tobacco: No Hx Alcohol Use: Yes Alcohol type: beer, wine and hard liquor alcohol intake frequency: a few times a month Hx Substance Use: No substance use type: does not use Physical Exam Vital Signs Last Vital Signs Temp 36.6 C 04/27/22 07:30 Pulse 83 04/27/22 07:30 Resp 16 04/27/22 07:30 BP 145/88 H 04/27/22 07:30 Pulse Ox 98 04/27/22 07:30 O2 Del Method Room Air 04/27/22 07:30 Testing Laboratory Results 04/27/22 07:16 04/27/22 07:16 PT 10.8 Seconds (9.0-12.0) 04/27/22 07:16 INR 1.0 (0.9-1.1) 04/27/22 07:16
[2022-04-27] MEDS ORDERED: PROPOFOL IV EMULSION 10 MG/ML 20 ML VIAL IV ONE ×2 (14:21→15:29)
[2022-04-27] MEDS ORDERED: LIDOCAINE 2% MPF LOCAL 5 ML VIAL INFIL ONE (14:21)
[2022-04-27] MEDS ORDERED: MIDAZOLAM HCL 1 MG/ML 2ML VIAL ONE (14:58)
[2022-04-27] MEDS ORDERED: fentaNYL citrate 100 MCG/2 ML VIAL ONE ×2 (14:58→15:28)
[2022-04-27] MEDS ORDERED: LIDOCAINE 1% LOCAL 20 ML VIAL ONE (15:07)
[2022-04-27] MEDS ORDERED: BACITRACIN OINT 15 GM TUBE ONE (15:07)
[2022-04-27] MEDS ORDERED: BUPIVACAINE 0.5 % 5 MG/1 ML MPF 30ML VIAL ONE (15:07)
[2022-04-27] MEDS ORDERED: GELATIN SPONGE SZ 100 ONE (15:08)
[2022-04-27] MEDS ORDERED: PROMETHAZINE HCL 6.25 MG in SODIUM CHLORIDE 0.9% 50 ML IV PRN (15:10)
[2022-04-27] MEDS ORDERED: fentaNYL citrate 100 MCG/2 ML VIAL IV PRN (15:10)
[2022-04-27] MEDS ORDERED: ATROPINE SULFATE 0.1 MG/ML 10ML SYR IV PRN (15:10)
[2022-04-27] MEDS ORDERED: ONDANSETRON INJ 2 MG/ML 2 ML VIAL IV PRN (15:10)
[2022-04-27] MEDS ORDERED: KETOROLAC 30 MG/ML VIAL IV PRN (15:10)
[2022-04-27] MEDS ORDERED: DEXAMETHASONE SOD INJ 4 MG/ML VIAL ONE (15:28)
[2022-04-27] MEDS ORDERED: ONDANSETRON INJ 2 MG/ML 2 ML VIAL ONE (15:28)
--- NOTE | 2022-04-27 15:36 | History & Physical Bridge Note ---
Date of Service April 27, 2022 History & Physical Bridge Note I have examined the patient, reviewed the History & Physical and in the interval since the performance of the History & Physical I have noted the following changes of clinical significance: no changes noted
--- NOTE | 2022-04-27 15:38 | Post Operative Brief Note ---
Immediate Post Op Note v1 Date of Surgery April 27, 2022 Pre & Post Diagnosis Operation Date: 04/27/22 08:00 Pre-Op Diagnosis: Perirectal Abscess Post-Op Diagnosis: Perirectal Abscess I identified the patient and participated in the time-out.: Yes Procedure Operation Date: 04/27/22 08:00 Actual Procedures p Incision and Drainage Perirectal Abscess(Not Applicable) - Brit Looney MD Surgeon Brit Looney MD Marine Safety Officer instructional support technician Estimated Blood Loss 5 Findings Consistent with Post-Op Diagnosis Fluids 400ml Drains Mima Drain and Other (packing the wound with kerlax) Complications none Disposition Accompanied Patient To Recovery: Yes
--- NOTE | 2022-04-27 15:52 | Hospitalist Progress Note ---
Date of Service April 27, 2022 Assessment & Plan (1) Perianal abscess: Plan: With associated cellulitis of the right gluteus. He remains on cefepime and Flagyl, day 2. Appreciate surgery consultation and management. He underwent incision and drainage today. Culture results are pending. (2) Mild persistent asthma: Plan: Stable on RA, lungs are CTA . Continue advair and albuterol . Incentive spi rometry prn Plan Anticipate eventual discharge to home on oral antibiotic Admission and Anticipated Discharge Date Admission Date: April 26, 2022 Subjective Alert and oriented. No distress. He was seen by me before I&D of the perirectal abscess. This was completed today. He remains on intravenous cefepime and Flagyl, day 2 Review of Systems Review of Systems: Constitutional-no fever or chills ENT-no blurred vision, no double vision, no epistaxis, no sore throat Respiratory-no cough, no wheezing, no shortness of breath Cardiac-no palpitations, no chest pain, no syncope GI-no nausea, vomiting, diarrhea, melena, hematochezia -no urinary retention, no urinary incontinence, no dysuria, no hematuria Musculoskeletal-no joint pain, no muscle tenderness Skin-no bruising, no rashes, no pruritus Neuro-no isolated weakness, no paresthesia, no weakness Psych-no depression, no anxiety Physical Exam Physical Exam: General-alert and oriented x3, no fevers, no chills HEENT-head atraumatic and normocephalic, pupils equal and reactive to light, extraocular muscles intact Neck-no lymphadenopathy or thyromegaly, trachea midline Chest-clear to auscultation percussion. No rales wheezing or rhonchi Cardiac-regular rate and rhythm, normal S1 and S2, no murmurs Abdomen-normal bowel sounds, nontender, no hepatosplenomegaly Extremities-no cyanosis, clubbing, or edema Skincellulitic process involving the medial aspect of the right gluteus Neuro-cranial nerves II through XII intact, motor and sensory function within normal limits, strength symmetrical , no focal deficits Psych-normal affect, normal mood Results & Data Results & Data ([facility]) Vital Signs (Past 12 Hours) Vital Signs Temp Pulse Pulse Resp BP Pulse Ox O2 Del Method 04/27/22 14:42 36.9 C 81 20 143/91 H 98 Room Air 04/27/22 07:30 36.6 C 83 16 145/88 H 98 Room Air 04/27/22 04:23 36.4 C L 76 16 149/92 H 96 Room Air Laboratory Results 04/27/22 07:16 04/27/22 07:16 PG Care Time/CCT Total # of Minutes Spent Total Time Spent with Patient: Total time spent is greater than 50% in coordination of care (as documented) at patient's floor/unit and/or counseling patient: Coding Level of Care Code 38537 SUB INP/OBS CARE 3/50MIN Diagnoses Perianal abscess K61.0 Mild persistent asthma J45.30
--- NOTE | 2022-04-27 16:14 | Anesthesiology Progress Note ---
Date of Service April 27, 2022 Anesthesia Post Procedure Vital Signs Vital Signs: Temp Pulse Pulse Pulse Resp BP BP 04/27/22 16:00 72 14 138/86 04/27/22 15:51 36.7 C 86 21 143/79 H 04/27/22 14:42 36.9 C 81 20 143/91 H 04/27/22 07:30 36.6 C 83 16 145/88 H 04/27/22 04:23 36.4 C L 76 16 149/92 H 04/26/22 22:53 37.1 C 18 146/76 H 04/26/22 22:19 88 Pulse Ox O2 Del Method 04/27/22 16:00 95 Room Air 04/27/22 15:51 99 Room Air 04/27/22 14:42 98 Room Air 04/27/22 07:30 98 Room Air 04/27/22 04:23 96 Room Air 04/26/22 22:53 98 Room Air 04/26/22 22:19 96 Room Air Pain Intensity Sacrum: Pain Intensity: 2 Transfer of Care Handoff Completed per policy Notes Mental Status: alert / awake / arousable Patient Amnestic to Procedure: Yes Nausea / Vomiting: adequately controlled Pain: adequately controlled Airway Patency, RR, SpO2: stable & adequate BP & HR: stable & adequate Hydration State: stable & adequate Anesthetic Complications: no major complications apparent
[2022-04-27] MEDS ORDERED: TRIAMCINOLONE ACET 0.1% OINT 15 GM TUBE TOP PRN (16:51)
[2022-04-27] MEDS ORDERED: oxyCODONE/ACETAMINOPHEN 5mg/325mg TAB PO PRN (16:51)
[2022-04-27] MEDS: FLUTICASONE/VILANTEROL 100/25MCG 14 PUFFS/INHALER INH SCH (20:03)
--- NOTE | 2022-04-28 00:08 | Operative Report (OR) ---
DATE OF PROCEDURE: 04/27/2022. PREOPERATIVE DIAGNOSIS: Perirectal abscess. POSTOPERATIVE DIAGNOSIS: Perirectal abscess. OPERATION: Incision and drainage of perirectal abscess. SURGEON: Brit Looney MD. ANESTHESIA: General. ESTIMATED BLOOD LOSS: About 5 mL. FINDINGS: Perirectal abscess. Wound cultures sent. COMPLICATIONS: None. INDICATIONS FOR THE PROCEDURE: This is a 31-year-old gentleman who was admitted to the hospital for perirectal abscess and I recomme nded to do the incision and drainage of perirectal abscess. I did talk to the patient about the bene fit, risk, alternate procedure. I indicated the risks may include, but not limited to such as bleedi ng, infection, recurrence, may need more procedure, scar, pain. The patient understands. He signed informed consent and I answered all questions. DETAILS OF PROCEDURE: After we identified the patient and verified the procedure, we brought the patient to the OR, put the patient in the supine position on the OR table. The patient received SCD on bilateral legs to preve nt DVT. Also, patient received 600 mg of clindamycin IV for prophylactic antibiotic. The patient re ceived general anesthesia without difficulty. Then, we repositioned, put the patient in the lithotom y position. The rectal area was prepped and draped in routine sterile fashion. After timeout, I inj ected the local anesthesia by using 1% lidocaine mixed with 0.5% Marcaine around the perirectal absce ss area on the right side. Then, I made about 1.5 cm incision with a 15 blade. Dissection to subcut aneous layer. There was some pus, we sent as wound culture. Once we cleaned all the pus, we put a o ne quarter-inch [place] to drain her abscess. I used 3-0 nylon to fix the [place] on the skin and I chose another quarter-inch Kerlix to packing the wound. Hemostasis was obtained. Then, we put the d ressing on. The patient tolerated the procedure well. All instrument, needle and sponge counts were correct x2 at the end of the case. The patient was transferred to recovery room in stable condition . The specimen was sent to the lab and after procedure, I did talk to the patient about the OR findi ng and the procedure we did. The patient understands. Job ID: [id number]
[2022-04-28] MEDS: metroNIDAZOLE 500 MG/100 ML BAG IV SCH ×2 (03:31→12:06)
[2022-04-28] MEDS: CEFEPIME 2,000 MG in SYRINGE 0 ML IV SCH ×2 (03:31→12:06)
[2022-04-28] MEDS: ACETAMINOPHEN 1,000 MG/100 ML VIAL IV PRN (03:37)
[2022-04-28 07:59] LABS: Hematocrit (blood only) 42.5 % (42.0-52.0); Hemoglobin 15.3 g/dl (14.0-18.0); Mean Corpuscular Hemoglobin 32.6 pg (25.0-34.0); Mean Corpuscular Volume 90.6 fL (80.0-100.0); Mean Platelet Volume 9.6 fL (9.4-12.4); Platelet Count 230 K/uL (130-400); RDW Coefficient of Variation 10.6 % (11.5-14.5); RDW Standard Deviation 35.1 fL (36.4-46.3); Red Blood Count 4.69 M/uL (4.70-6.10); White Blood Count 13.01 K/ul (4.8-10.8)
[2022-04-28] MEDS ORDERED: LORATADINE 10 MG TAB PO SCH (09:00)
[2022-04-28] MEDS ORDERED: MONTELUKAST SODIUM 10 MG TABLET PO SCH (09:00)
[2022-04-28] MEDS ORDERED: ACETAMINOPHEN 325 MG TAB PO PRN (09:56)
--- NOTE | 2022-04-28 11:30 | Surgery Progress Note ---
Date of Service April 28, 2022 Assessment & Plan (1) Perianal cellulitis: (2) Phlegmon: (3) Perianal abscess: Plan POD # 1 s/p I&D of perirectal abscess -afebrile, vss - postop pain controlled - culture showing few polys but not finalized Plan: Okay from surgical standpoint for discharge PO Bactrim for 10 days f/u in surgery office next week Rx for Percocet sent to pharmacy Dr. stewart has seen patient and agrees with above. Admission and Anticipated Discharge Date Admission Date: April 26, 2022 Subjective feeling better this am tylenol controlling pain no n,v no fevers Physical Exam Constitutional: WD/WN, vitals as above cooperative and comfortable; no acute distress and not ill appearing Respiratory: normal respiratory effort; no respiratory distress Skin: no rashes, warm and dry Psychiatric: A+Ox3, euthymic affect Results & Data ([facility]) Vital Signs (Past 12 Hours) Vital Signs Temp Pulse Resp BP BP Pulse Ox O2 Del Method 04/28/22 07:21 36.3 C L 66 16 126/74 97 Room Air 04/28/22 03:11 36.5 C 70 18 125/75 98 Room Air 04/27/22 23:34 36.5 C 65 18 136/75 96 Room Air Laboratory Results 04/28/22 Range/Units 06:49 WBC 13.01 H (4.8-10.8) K/ul RBC 4.69 L (4.70-6.10) M/uL Hgb 15.3 (14.0-18.0) g/dl Hct 42.5 (42.0-52.0) % MCV 90.6 (80.0-100.0) fL MCH 32.6 (25.0-34.0) pg MCHC 36.0 (32.0-36.0) g/dL RDW Std Deviation 35.1 L (36.4-46.3) fL RDW Coeff of Magdalene 10.6 L (11.5-14.5) % Plt Count 230 (130-400) K/uL MPV 9.6 (9.4-12.4) fL
--- NOTE | 2022-04-28 12:14 | Discharge Summary ---
Date of Service April 28, 2022 Admission HPI Per Admitting Provider Grzegorz is a 31 year old male with a PMH significant for Allergic rhinitis, Asthma, and Herpes simplex type 1 infection who presented to the [facility] ED from an Urgent Care clinic today (04/26/22) due to concerns for tailbone fracture and possible abscess of the buttocks. In the ED the patient was found to be afebrile, hypertensive at 162/100, and stable on RA. Labs were remarkable for a leukocytosis of 14 with left shift of 11, stable Hgb and platelets, stable cr, electrolytes, and LFT's, and Covid negative. CT of the abd/pelvis with IV contrast was read as" 1. 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 No supralevator extension. 2. No bowel obstruction or bowel wall thickening. 3. Noninflamed appendix with subcentimeter appendicolith. 4. Hepatomegaly with hepatic steatosis.". The patient was initially given Cefepime, flagyl, and Vancomycin along with 1L NSS and 8 mg total IV morphine. The ED staff spoke with General Surgery who recommended medicine admission with IV antibiotics at this time. At the time of the exam the patient was lying in bed in no acute distress. 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 He was carrying a bad, slipped on ice, and landed on his buttocks holding the salt bag. He rested and and the pain initially improved. Over last week he started to develop swelling and increased pain of the right buttocks. He used tylenol and ibuprofen without relief. He went to an urgent care clinic today for evaluation where they obtain an xray of his pelvis. They told him he may have fractured his tailbone and they were concerned for possible abscess and sent him to the ED. His pain is currently an 8/10 as the morphine he received in the ED has worn off. He had chills and sweats last night but did not take his temperature. He denies chest pain, SOB, abd pain, nausea, vomiting, changes in bowel habits, melena, bloody stool, dysuria, hematuria. Please refer to Dr. Saez's attestation for any changes to the treatment plan. Principal Diagnosis Perianal abscess and fistula, right gluteal cellulitis Discharge Exam General-alert and oriented x3, no fevers, no chills HEENT-head atraumatic and normocephalic, pupils equal and reactive to light, extraocular muscles intact Neck-no lymphadenopathy or thyromegaly, trachea midline Chest-clear to auscultation percussion. No rales wheezing or rhonchi Cardiac-regular rate and rhythm, normal S1 and S2, no murmurs Abdomen-normal bowel sounds, nontender, no hepatosplenomegaly Extremities-no cyanosis, clubbing, or edema Skincellulitic process involving the medial aspect of the right gluteus Neuro-cranial nerves II through XII intact, motor and sensory function within normal limits, strength symmetrical , no focal deficits Psych-normal affect, normal mood Discharge Data Allergies Allergy/AdvReac Type Severity Reaction Status Date / Time animal dander Allergy Intermediate CONGESTION Verified 04/26/22 17:06 house dust mite Allergy Intermediate CONGESTION Verified 04/26/22 17:06 Penicillins Allergy Unknown Unknown Verified 04/26/22 17:06 Consultations 04/26/22 20:39 ED Decision to Admit Stat 04/27/22 08:43 Consult General Surgery Routine Procedures Performed Operation Date: 04/27/22 08:00 Actual Procedures p Incision and Drainage Perirectal Abscess(Not Applicable) - Brit Stewart MD Ordered Studies 04/26/22 16:32 CT abd pelvis IV con only Stat Hospital Course (1) Perianal abscess: With associated cellulitis of the right gluteus. Treated while hospitalized with cefepime and Flagyl. Appreciate surgery consultation and management. He underwent incision and drainage on April 27. Final culture results are pending. (2) Mild persistent asthma: Stable on RA, lungs are CTA . Continue advair and albuterol . Incentive spirometry prn Plan Surgery states he can be discharged to home today with drain in place. He will remain on Bactrim for 10 more days. He will also take Percocet as needed for pain. He will follow-up with surgery as an outpatient. Total Time Total Time Spent Total Time Spent (In Minutes): 40 minutes Discharge Plan Discharge Items Patient Disposition: Home - Self-Care Reason For Visit: BUTTOCKS PAIN/CELLULITIS Discharge Diagnosis: Perianal abscess with fistula, right gluteal cellulitis Activity: Resume your previous activity Non-emergency contact: Primary Care Provider and Surgeon Call non-emergency contact if: you have any medication questions Follow-up/Referrals: Aries Fischer DO [Primary Care Provider] - Brit Stewart MD [Physician] - 05/01/22 11:00 am Diet: Regular Addtl Attending Provider Instructions: Surgical drain remains in place. Follow-up with surgical nurses on Sunday. Take Bactrim as prescribed. Use Percocet as needed for any pain Addtl Trade Recruiter Provider Instructions: ACTIVITY RECOMMENDATIONS: * No heavy lifting for 1 week. MEDICATIONS: Resume previous medications unless instructed otherwise by your surgeon. * Percocet 5/325 mg 1 every 4 hours, as needed for pain * Colace 100 mg 2 times per day to prevent constipation or straining. Drink plenty of water daily. * Extra Strength Tylenol 500 - 1000 mg every 4 hours, as needed for pain * Ibuprofen 600 mg every 6 hours, as needed for pain SPECIAL CARE INSTRUCTIONS: * You may shower. Let water run over area and pat dry * You have a surgical drain secured in the wound as well as packing. Packing will be removed in office on Sunday. If packing falls out that is okay. * Change outer dressing daily and as needed to keep clean and dry. * Shower at least daily and after each bowel movement. * Call the surgeon's office with any questions or concerns - (ex. temperature higher than 101 degrees F, excessive bleeding or pain). FOLLOW UP VISIT: We have you scheduled for a nurse visit on 05/01/22 at 11:00 at [facility] general surgery office for packing change and then a follow-up visit with Dr. stewart on 05/04/22 at 1:30 pm. Pending Studies at Discharge: Yes (culture results) Stand-Alone Forms: My [employer], Smoking Cessation Medications and DC Order Prescriptions: New oxycodone-acetaminophen 5-325 mg tablet 1 tab PO Q6H PRN (Reason: pain) Qty: 5 0RF montelukast [Singulair] 10 mg Tablet 10 mg PO HS Qty: 30 0RF sulfamethoxazole-trimethoprim 800-160 mg tablet 1 tab PO BID 10 Days Qty: 20 0RF oxycodone-acetaminophen [Percocet] 5-325 mg Tablet 1 tab PO Q4H PRNQty: 0 0RF Continued fluticasone propion-salmeterol [Advair Diskus] 250-50 mcg/dose blister with device 1 inh inhalation BID Qty: 60 11RF Rx Instructions: with a rinse of mouth afterwards. loratadine 10 mg tablet 10 mg PO DAILY triamcinolone acetonide 0.1 % ointment 1 applic topical BID PRN (Reason: Skin Irritation) montelukast 10 mg tablet 10 mg PO DAILY Rx Instructions: TAKE 1 TABLET BY MOUTH DAILY albuterol sulfate [Ventolin HFA] 90 mcg/actuation HFA aerosol inhaler 2 inh inhalation QID PRN (Reason: Shortness Of Breath Or Wheezing) Discharge Orders: Discharge Order (Routine); Ordered 04/28/22 Ordered By: Reed Galloway Admission Data Admit Date/Time: 04/26/22 20:57 Attending Provider: Reed Galloway Admit Provider: Manuel Fitzpatrick Primary Care Provider: Aries Fischer Other Providers: Manuel Fitzpatrick ; Jt Pang Coding Level of Care Code 01594 INP/OBS DISCH >30 MIN Diagnoses Perianal abscess K61.0 Mild persistent asthma J45.30
[2022-04-28] MEDS ORDERED: DOCUSATE SODIUM 100 MG CAP PO ONE (12:30)
== END 2022-04-28 14:15 | disposition home or self-care (01) | DRG 345 ==
LOC: ED 15:49 → SUATTDRO 20:57 → 3E 20:57